=== PATIENT | male | born 1975 | race Hispanic/Latino ===

== ENCOUNTER 2023-01-02 00:19 | Emergency (ER) | payer BC ==
[2023-01-02 00:57] LABS: #Eosinphils 0.2 thou/uL (0.0-0.7); #Monocytes 0.5 thou/uL (0.11-0.59); #Neutrophils 5.7 thou/uL (1.40-6.50); %Basophils 0.1 % (0.0-1.0); %Eosinophils 3.2 % (0.0-10.0); %Lymphocytes 13.9 % (21.0-51.0); %Monocytes 6.5 % (0.0-10.0); Mean Corpuscular HGB CONC 32.6 g/dL (32.0-36.0); Mean Corpuscular Hemoglobin 32.4 pg (27.0-31.0); Mean Corpuscular Volume 99.1 fl (78.0-98.0); Mean Platelet Volume 10.6 fL (7.4-10.4); Platelet Count 141 10x3/uL (130-400); RBC Distribution Width 15.9 % (11.5-14.5); White Blood Cell (WBC) Count 7.5 10x3/uL (4.8-10.8)
[2023-01-02 01:24] LABS: ALT (SGPT) 11 U/L (8-55); AST (SGOT) 20 U/L (5-34); Alkaline Phosphatase 140 U/L (40-110); Anion Gap 25 mmol/L (10-20); BUN (Urea Nitrogen) 70 mg/dL (8.9-20.6); Calc. Creatinine Clearance 0 mL/min (70-130); Calcium 8.7 mg/dL (7.8-10.44); Carbon Dioxide 19 mmol/L (22-29); Chloride 102 mmol/L (98-107); Estimated GFR 6; Globulin 3.2 g/dL (2.4-3.5); Glucose 99 mg/dL (70-105); Potassium 5.2 mmol/L (3.5-5.1); Protein, Total 7.2 g/dL (6.0-8.3); Sodium 141 mmol/L (136-145)
== END 2023-01-02 02:51 | disposition home or self-care (01) ==
LOC: EDBD 00:19 → ERS 00:19
DX: N18.6 End stage renal disease (principal); Z99.2 Dependence on renal dialysis
CPT/HCPCS: 71045; 80053; 85025; 93005

== ENCOUNTER 2023-02-08 23:19 | Observation (INO) | payer BC ==
[2023-02-08 23:39] LABS: #Eosinphils 0.2 thou/uL (0.0-0.7); #Monocytes 0.6 thou/uL (0.11-0.59); #Neutrophils 5.9 thou/uL (1.40-6.50); %Basophils 0.1 % (0.0-1.0); %Eosinophils 2.4 % (0.0-10.0); %Lymphocytes 15.8 % (21.0-51.0); %Monocytes 7.1 % (0.0-10.0); %Neutrophils 74.2 % (42.0-75.0); Hematocrit 35.9 % (42.0-52.0); Hemoglobin 11.7 g/dL (14.0-18.0); Mean Corpuscular HGB CONC 32.6 g/dL (32.0-36.0); Mean Corpuscular Hemoglobin 32.5 pg (27.0-31.0); Mean Corpuscular Volume 99.7 fl (78.0-98.0); Mean Platelet Volume 11.1 fL (7.4-10.4); Platelet Count 143 10x3/uL (130-400); RBC Distribution Width 15.2 % (11.5-14.5); White Blood Cell (WBC) Count 7.9 10x3/uL (4.8-10.8)
[2023-02-08 23:56] LABS: ALT (SGPT) 7 U/L (8-55); AST (SGOT) 13 U/L (5-34); Albumin 3.9 g/dL (3.5-5.0); Alkaline Phosphatase 153 U/L (40-110); Anion Gap 29 mmol/L (10-20); BUN (Urea Nitrogen) 92 mg/dL (8.9-20.6); Bilirubin, Total 1.3 mg/dL (0.2-1.2); Calc. Creatinine Clearance 0 mL/min (70-130); Calcium 8.6 mg/dL (7.8-10.44); Carbon Dioxide 14 mmol/L (22-29); Chloride 103 mmol/L (98-107); Estimated GFR 3; Globulin 3.5 g/dL (2.4-3.5); Glucose 93 mg/dL (70-105); Potassium 5.2 mmol/L (3.5-5.1); Protein, Total 7.4 g/dL (6.0-8.3); Sodium 141 mmol/L (136-145)
[2023-02-09] LABS: Troponin I 0.073 ng/mL (< 0.028)
[2023-02-09] MEDS ORDERED: Nitroglycerin 2% Ointment 1 INCH/1 GM Packet ONE (00:10)
[2023-02-09] MEDS ORDERED: Acetaminophen 650 MG Suppository PR PRN (02:05)
[2023-02-09] MEDS ORDERED: Acetaminophen 325 MG TAB PO PRN (02:05)
[2023-02-09] MEDS ORDERED: Ondansetron PF 4 MG/2 ML Vial IVP PRN (02:05)
[2023-02-09] MEDS ORDERED: Ondansetron ODT 4 MG TAB PO PRN (02:05)
[2023-02-09 02:40] LABS: Hematocrit 35.9 % (42.0-52.0); Hemoglobin 11.5 g/dL (14.0-18.0); Mean Corpuscular Hemoglobin 32.8 pg (27.0-31.0); Mean Corpuscular Volume 102.3 fl (78.0-98.0); Mean Platelet Volume 11.3 fL (7.4-10.4); Platelet Count 136 10x3/uL (130-400); RBC Distribution Width 15.4 % (11.5-14.5); Red Blood Cell (RBC) Count 3.51 mill/uL (4.70-6.10); White Blood Cell (WBC) Count 10.1 10x3/uL (4.8-10.8)
[2023-02-09 02:44] LABS: Delete Auto Diff?? YES; Manual Diff?? YES
[2023-02-09 03:28] LABS: Anion Gap 32 mmol/L (10-20); BUN (Urea Nitrogen) 91 mg/dL (8.9-20.6); Calc. Creatinine Clearance 6 mL/min (70-130); Calcium 7.9 mg/dL (7.8-10.44); Carbon Dioxide 10 mmol/L (22-29); Chloride 104 mmol/L (98-107); Estimated GFR 3; Glucose 75 mg/dL (70-105); Sodium 140 mmol/L (136-145)
[2023-02-09 03:29] LABS: HBSAg Index 0.25 S/CO (0-0.99); Hep B Core Total Ab Non-Reactive (NonReactive); Hep B Core Total Index 0.04 S/CO (0-0.79); Hep B Surf Ag Non-Reactive S/CO (NonReactive); Hep C IgG Ab Non-Reactive S/CO (NonReactive); Hep C Index 0.07 S/CO (0-0.79)
[2023-02-09 03:35] LABS: Burr Cells SLIGHT = 2-5 cells HPF (0-1); CellaVision Operator ID LAB.CLH1; Elliptocytes SLIGHT = 2-5 cells HPF (0-1); Eosinophils 3 % (0-10); Lymphocytes 15 % (21-51); Macrocytosis SLIGHT = 6-15 cells HPF (0-5); Monocytes 7 % (0-10); Neutrophil 76 % (42-75); Platelet Adequacy Comment Platelets Normal; Polychromasia SLIGHT = 2-3 cells HPF (0-2); Total Cell Count 102
[2023-02-09 03:40] LABS: Potassium 6.2 mmol/L (3.5-5.1)
[2023-02-09 03:42] LABS: HBSAB Concentration 15.04 mIU/mL; Hep B Surf AB Reactive (NonReactive)
[2023-02-09] MEDS ORDERED: fentaNYL 50 mcg/mL 1 mL Vial ONE (06:03)
[2023-02-09] MEDS: fentaNYL 50 mcg/mL 1 mL Vial SLOW IVP PRN ×2 (06:14→14:02)
[2023-02-09 08:08] VITALS: BMI 31.0
[2023-02-09] MEDS ORDERED: Amlodipine 5 MG TAB PO SCH (14:21)
[2023-02-09] MEDS: Sevelamer Carbonate 800 MG TAB PO SCH (18:06)
[2023-02-10 05:13] LABS: Anion Gap 24 mmol/L (10-20); BUN (Urea Nitrogen) 59 mg/dL (8.9-20.6); Calc. Creatinine Clearance 11 mL/min (70-130); Carbon Dioxide 20 mmol/L (22-29); Chloride 99 mmol/L (98-107); Estimated GFR 5; Glucose 73 mg/dL (70-105); Potassium 4.4 mmol/L (3.5-5.1); Sodium 139 mmol/L (136-145)
[2023-02-10] MEDS ORDERED: traMADol HCl 50 MG TAB PO SCH (05:30)
[2023-02-10 07:55] VITALS: TEMP 97.7
[2023-02-10] MEDS ORDERED: Heparin 10,000 UNITS/ 10 ML VIAL ONE (08:43)
[2023-02-10] MEDS: Sevelamer Carbonate 800 MG TAB PO SCH ×2 (08:50→14:01)
[2023-02-10] MEDS ORDERED: Amlodipine 5 MG TAB PO SCH (09:00)
[2023-02-10 14:43] VITALS: BP 148/90
== END 2023-02-10 14:30 | disposition home or self-care (01) ==
LOC: ERS 23:19 → ERHOLD 02-09 00:48 → 2NO 02-09 07:37
PROVIDERS: ADMIT Student in an Organized Health Care Education/Training Program; ATTEND Internal Medicine
DX: R06.02 Shortness of breath (principal); N18.6 End stage renal disease; I12.0 Hypertensive chronic kidney disease with stage 5 chronic kidney disease or end stage renal disease; D63.1 Anemia in chronic kidney disease; R60.0 Localized edema; E87.70 Fluid overload, unspecified; F19.90 Other psychoactive substance use, unspecified, uncomplicated; F12.90 Cannabis use, unspecified, uncomplicated; F14.90 Cocaine use, unspecified, uncomplicated; E87.5 Hyperkalemia; E87.20 Acidosis, unspecified; Z99.2 Dependence on renal dialysis
CPT/HCPCS: 36415; 71045; 80048; 80053; 84484; 85025; 86704; 90935; 93005; 94760; 96374; 96376; G0257; G0378; J1644; J3010

== ENCOUNTER 2023-07-27 16:19 | Inpatient (IN) | payer BC ==
[~2023-07-27 16:19] MED LIST: Iopamidol-370 76% 500 ML MDV (1 ML CHARGE) ONE
[2023-07-27 17:08] LABS: #Eosinphils 0.2 thou/uL (0.0-0.7); #Monocytes 0.7 thou/uL (0.11-0.59); #Neutrophils 7.8 thou/uL (1.40-6.50); %Basophils 0.2 % (0.0-1.0); %Eosinophils 1.7 % (0.0-10.0); %Lymphocytes 8.1 % (21.0-51.0); %Monocytes 7.6 % (0.0-10.0); %Neutrophils 82.1 % (42.0-75.0); Hematocrit 33.6 % (42.0-52.0); Hemoglobin 10.6 g/dL (14.0-18.0); Mean Corpuscular HGB CONC 31.5 g/dL (32.0-36.0); Mean Corpuscular Hemoglobin 30.1 pg (27.0-31.0); Mean Corpuscular Volume 95.5 fl (78.0-98.0); Mean Platelet Volume 10.3 fL (7.4-10.4); Platelet Count 193 10x3/uL (130-400); RBC Distribution Width 16.3 % (11.5-14.5); Red Blood Cell (RBC) Count 3.52 mill/uL (4.70-6.10); White Blood Cell (WBC) Count 9.5 10x3/uL (4.8-10.8)
[2023-07-27] MEDS ORDERED: Cefepime 2 GM VIAL ONE (17:09)
[2023-07-27] MEDS ORDERED: Sodium Chloride 0.9% 100 ML ONE (17:09)
[2023-07-27 17:34] LABS: ALT (SGPT) 10 U/L (8-55); AST (SGOT) 16 U/L (5-34); Albumin 3.6 g/dL (3.5-5.0); Alkaline Phosphatase 141 U/L (40-110); Anion Gap 21 mmol/L (10-20); BUN (Urea Nitrogen) 44 mg/dL (8.9-20.6); Bilirubin, Total 1.6 mg/dL (0.2-1.2); Calc. Creatinine Clearance 0 mL/min (70-130); Calcium 8.9 mg/dL (7.8-10.44); Carbon Dioxide 26 mmol/L (22-29); Chloride 101 mmol/L (98-107); Estimated GFR 8; Globulin 4.2 g/dL (2.4-3.5); Glucose 116 mg/dL (70-105); Protein, Total 7.8 g/dL (6.0-8.3); Sodium 143 mmol/L (136-145)
[2023-07-27] MEDS ORDERED: Vancomycin 1 GM/200 ML (FROZEN) BAG ONE (17:53)
[2023-07-27 21:39] LABS: Acetaminophen Less than 10 mcg/mL (10.0-30.0); Alcohol Less than 10.0 mg/dL (Less than 10); Salicylate Less than 8.0 mg/dL (15.0-30.0)
[2023-07-27 21:49] LABS: Bilirubin Negative (Negative); Blood, Urine Negative (Negative); CAUTI Indications for Culture Fever or rigors; Clarity Turbid (Clear); Glucose, Urine (Dipstick) 200 mg/dL (Negative); Ketone, Urine Negative (Negative); Leukocyte 25 Leu/uL (Negative); Nitrite Negative (Negative); Protein, Urine (Dipstick) 300 mg/dL (Neg-Trace); RBC/HPF None Seen HPF (0-3); Urobilinogen Normal mg/dL (Less than 2); WBC/HPF 0-3 HPF (0-3); pH, Urine 8.5 (5.0-9.0)
[2023-07-27 21:53] LABS: Amphetamine Not Detected (NotDetected); Barbiturates Screen Not Detected (NotDetected); Benzodiazepine Screen Not Detected (NotDetected); Cocaine Metabolite Screen Not Detected (NotDetected); Methadone Not Detected (NotDetected); Methamphetamine Not Detected (NotDetected); Opiate Screen Detected (NotDetected); Oxycodone Screen Not Detected (NotDetected); Phencyclidine (PCP) Not Detected (NotDetected); THC/Cannabinoid Screen Detected (NotDetected); Tricyclic Screen Not Detected (NotDetected)
[2023-07-27 22:00] LABS: Bacteria/HPF Rare-Few HPF (None Seen)
[2023-07-27 22:03] LABS: Urine Culture Reflex No No
[2023-07-27] MEDS ORDERED: Acetaminophen 650 MG Suppository PR PRN (23:08)
[2023-07-27] MEDS ORDERED: Ondansetron ODT 4 MG TAB PO PRN (23:08)
[2023-07-27] MEDS ORDERED: Ondansetron PF 4 MG/2 ML Vial IVP PRN (23:08)
[2023-07-27 23:36] VITALS: BMI 26.2
[2023-07-27] MEDS ORDERED: Vancomycin Diaylsis Sliding Scale (Wt 71-99) FS SCH (23:45)
[2023-07-28] MEDS: Acetaminophen 325 MG TAB PO PRN (02:30)
[2023-07-28 04:31] LABS: #Eosinphils 0.2 thou/uL (0.0-0.7); #Monocytes 0.7 thou/uL (0.11-0.59); #Neutrophils 7.5 thou/uL (1.40-6.50); %Basophils 0.2 % (0.0-1.0); %Eosinophils 1.7 % (0.0-10.0); %Lymphocytes 9.5 % (21.0-51.0); %Monocytes 7.6 % (0.0-10.0); %Neutrophils 80.7 % (42.0-75.0); Hematocrit 32.9 % (42.0-52.0); Hemoglobin 10.2 g/dL (14.0-18.0); Mean Corpuscular Hemoglobin 30.1 pg (27.0-31.0); Mean Corpuscular Volume 97.1 fl (78.0-98.0); Mean Platelet Volume 10.7 fL (7.4-10.4); Platelet Count 189 10x3/uL (130-400); RBC Distribution Width 16.3 % (11.5-14.5); Red Blood Cell (RBC) Count 3.39 mill/uL (4.70-6.10); White Blood Cell (WBC) Count 9.4 10x3/uL (4.8-10.8)
[2023-07-28 04:58] LABS: Anion Gap 18 mmol/L (10-20); BUN (Urea Nitrogen) 50 mg/dL (8.9-20.6); Calc. Creatinine Clearance 14 mL/min (70-130); Calcium 8.6 mg/dL (7.8-10.44); Carbon Dioxide 26 mmol/L (22-29); Chloride 102 mmol/L (98-107); Estimated GFR 8; Glucose 94 mg/dL (70-105); Potassium 5.5 mmol/L (3.5-5.1); Sodium 140 mmol/L (136-145)
[2023-07-28 07:46] LABS: Vancomycin, Random 31.2 ug/mL (See Comment)
[2023-07-28] MEDS: Famotidine 20 MG TAB PO SCH (08:56)
[2023-07-28] MEDS: Amlodipine 5 MG TAB PO SCH (08:56)
[2023-07-28] MEDS: Carvedilol 3.125 MG TAB PO SCH (08:57)
[2023-07-28] MEDS: Famotidine/PF 20 mg/2ml Vial SLOW IVP SCH (08:57)
[2023-07-28] MEDS: Sevelamer Carbonate 800 MG TAB PO SCH (08:57)
[2023-07-28] MEDS: Apixaban 5 MG TAB PO SCH (08:57)
[2023-07-28] MEDS ORDERED: Vancomycin 1.5 GM in Sodium Chloride 0.9% 250 ML 300 ML IVPB SCH (09:00)
[2023-07-28] MEDS ORDERED: Heparin 10,000 UNITS/ 10 ML VIAL ONE (12:56)
[2023-07-28] MEDS: Epoetin (ESRD) 10,000 UNITS/ML VIAL IVP SCH (14:16)
[2023-07-29 08:38] VITALS: BP 124/77; TEMP 96.5
== END 2023-07-29 12:00 | disposition home or self-care (01) | DRG 640 ==
LOC: ERS 16:19 → 2NO 21:33
PROVIDERS: ADMIT Student in an Organized Health Care Education/Training Program; ATTEND Internal Medicine
PROC: 5A1D70Z Performance of Urinary Filtration, Intermittent, Less than 6 Hours Per Day (ICD-10-PCS; principal; 2023-07-28)
DX: E87.5 Hyperkalemia (principal); I50.23 Acute on chronic systolic (congestive) heart failure; N18.6 End stage renal disease; J96.01 Acute respiratory failure with hypoxia; I13.2 Hypertensive heart and chronic kidney disease with heart failure and with stage 5 chronic kidney disease, or end stage renal disease; L03.116 Cellulitis of left lower limb; I42.9 Cardiomyopathy, unspecified; J91.8 Pleural effusion in other conditions classified elsewhere; Z99.2 Dependence on renal dialysis; D63.1 Anemia in chronic kidney disease; Z98.890 Other specified postprocedural states; Z79.899 Other long term (current) drug therapy; Z86.718 Personal history of other venous thrombosis and embolism; F19.10 Other psychoactive substance abuse, uncomplicated; G89.29 Other chronic pain; M79.605 Pain in left leg; Z75.3 Unavailability and inaccessibility of health-care facilities
CPT/HCPCS: 36415; 71045; 71275; 80048; 80053; 80202; 80306; 80307; 81001; 83605; 83880; 84484; 85025; 85379; 85610; 85730; 86140; 87040; 90935; 93005; 96365; 96367; 96374; 96375; 96376; G0257; J0692; J1644; J1885; J2270; J2405; J3370; J3370-JW; J3490; Q9967

== ENCOUNTER 2023-07-29 19:13 | Emergency (ER) | payer BC ==
[2023-07-29] MEDS ORDERED: Morphine 4 MG/ML VIAL ONE (20:27)
[2023-07-29] MEDS ORDERED: Ketorolac Tromethamine 30 MG (1 mL) VIAL ONE (20:27)
[2023-07-29 20:45] LABS: #Eosinphils 0.2 thou/uL (0.0-0.7); #Monocytes 1.1 thou/uL (0.11-0.59); #Neutrophils 10.2 thou/uL (1.40-6.50); %Basophils 0.2 % (0.0-1.0); %Eosinophils 1.9 % (0.0-10.0); %Monocytes 8.5 % (0.0-10.0); %Neutrophils 82.1 % (42.0-75.0); Hematocrit 35.2 % (42.0-52.0); Mean Corpuscular HGB CONC 31.3 g/dL (32.0-36.0); Mean Corpuscular Volume 95.9 fl (78.0-98.0); Mean Platelet Volume 10.8 fL (7.4-10.4); Platelet Count 208 10x3/uL (130-400); RBC Distribution Width 16.6 % (11.5-14.5); Red Blood Cell (RBC) Count 3.67 mill/uL (4.70-6.10); White Blood Cell (WBC) Count 12.4 10x3/uL (4.8-10.8)
[2023-07-29 21:09] LABS: ALT (SGPT) 7 U/L (8-55); AST (SGOT) 12 U/L (5-34); Albumin 3.9 g/dL (3.5-5.0); Alkaline Phosphatase 130 U/L (40-110); Anion Gap 23 mmol/L (10-20); BUN (Urea Nitrogen) 49 mg/dL (8.9-20.6); Bilirubin, Total 1.4 mg/dL (0.2-1.2); Calc. Creatinine Clearance 0 mL/min (70-130); Calcium 8.9 mg/dL (7.8-10.44); Carbon Dioxide 21 mmol/L (22-29); Chloride 101 mmol/L (98-107); Estimated GFR 8; Glucose 95 mg/dL (70-105); Protein, Total 7.9 g/dL (6.0-8.3); Sodium 139 mmol/L (136-145)
[2023-07-29] MEDS ORDERED: LOKELMA 10 GM PACKET PO SCH (21:30)
[2023-07-30] MEDS ORDERED: Heparin 10,000 UNITS/ 10 ML VIAL ONE (11:29)
== END 2023-07-30 05:45 | disposition home or self-care (01) ==
LOC: ERS 19:13
DX: G89.29 Other chronic pain (principal); M79.605 Pain in left leg; N18.6 End stage renal disease; Z75.3 Unavailability and inaccessibility of health-care facilities; Z99.2 Dependence on renal dialysis
CPT/HCPCS: 80053; 83605; 85025; J1885; J2270

== ENCOUNTER 2023-07-31 19:46 | Emergency (ER) | payer BC ==
[2023-07-31 21:36] LABS: #Eosinphils 0.1 thou/uL (0.0-0.7); #Monocytes 0.7 thou/uL (0.11-0.59); #Neutrophils 4.5 thou/uL (1.40-6.50); %Basophils 0.2 % (0.0-1.0); %Lymphocytes 15.6 % (21.0-51.0); %Monocytes 11.4 % (0.0-10.0); %Neutrophils 70.6 % (42.0-75.0); Hematocrit 33.4 % (42.0-52.0); Hemoglobin 10.6 g/dL (14.0-18.0); Mean Corpuscular HGB CONC 31.7 g/dL (32.0-36.0); Mean Corpuscular Hemoglobin 30.7 pg (27.0-31.0); Mean Corpuscular Volume 96.8 fl (78.0-98.0); Mean Platelet Volume 10.3 fL (7.4-10.4); Platelet Count 184 10x3/uL (130-400); RBC Distribution Width 17.1 % (11.5-14.5); Red Blood Cell (RBC) Count 3.45 mill/uL (4.70-6.10); White Blood Cell (WBC) Count 6.4 10x3/uL (4.8-10.8)
[2023-07-31 21:49] LABS: INR-International Normal Ratio 1.5; PTT 44.9 sec (22.9-36.1); Prothrombin Time 18.5 sec (12.0-14.7)
[2023-07-31 21:59] LABS: ALT (SGPT) Less than 7 U/L (8-55); AST (SGOT) 12 U/L (5-34); Albumin 3.7 g/dL (3.5-5.0); Alkaline Phosphatase 149 U/L (40-110); Anion Gap 15 mmol/L (10-20); BUN (Urea Nitrogen) 27 mg/dL (8.9-20.6); Bilirubin, Total 1.4 mg/dL (0.2-1.2); Calc. Creatinine Clearance 0 mL/min (70-130); Calcium 8.9 mg/dL (7.8-10.44); Carbon Dioxide 22 mmol/L (22-29); Chloride 105 mmol/L (98-107); Estimated GFR 16; Globulin 3.7 g/dL (2.4-3.5); Glucose 153 mg/dL (70-105); Potassium 4.4 mmol/L (3.5-5.1); Protein, Total 7.4 g/dL (6.0-8.3); Sodium 138 mmol/L (136-145)
[2023-07-31] MEDS ORDERED: HYDROcodone/Acetaminophen 10/325 mg Tablet ONE (23:48)
== END 2023-08-01 00:16 | disposition home or self-care (01) ==
LOC: ERS 19:46
DX: M79.605 Pain in left leg (principal); Z99.2 Dependence on renal dialysis
CPT/HCPCS: 36415; 36416; 80053; 83605; 85025; 85610; 85730

== ENCOUNTER 2023-08-05 19:51 | Inpatient (IN) | payer BC ==
[2023-08-05] MEDS ORDERED: Morphine 4 MG/ML VIAL ONE (20:25)
[2023-08-05] MEDS ORDERED: Insulin Regular 300 UNITS/3 ML VIAL ONE (20:33)
[2023-08-05] MEDS ORDERED: Dextrose 10% in Water 250 ML ONE (20:33)
[2023-08-05] MEDS ORDERED: CALCIUM GLUC 1 GM (50 ML) BAG ONE (20:33)
[2023-08-05] MEDS ORDERED: Albuterol 2.5 MG (0.5 mL) NEB ONE (20:36)
[2023-08-05 20:51] LABS: #Monocytes 0.8 thou/uL (0.11-0.59); #Neutrophils 8.9 thou/uL (1.40-6.50); %Basophils 0.2 % (0.0-1.0); %Eosinophils 0.3 % (0.0-10.0); %Lymphocytes 9.6 % (21.0-51.0); %Monocytes 7.5 % (0.0-10.0); Hematocrit 37.7 % (42.0-52.0); Mean Corpuscular HGB CONC 31.8 g/dL (32.0-36.0); Mean Corpuscular Hemoglobin 30.1 pg (27.0-31.0); Mean Corpuscular Volume 94.5 fl (78.0-98.0); Mean Platelet Volume 11.1 fL (7.4-10.4); Platelet Count 179 10x3/uL (130-400); RBC Distribution Width 17.2 % (11.5-14.5); Red Blood Cell (RBC) Count 3.99 mill/uL (4.70-6.10); White Blood Cell (WBC) Count 10.8 10x3/uL (4.8-10.8)
[2023-08-05 21:15] LABS: ALT (SGPT) 19 U/L (8-55); AST (SGOT) 40 U/L (5-34); Albumin 4.4 g/dL (3.5-5.0); Alkaline Phosphatase 164 U/L (40-110); Anion Gap 33 mmol/L (10-20); BUN (Urea Nitrogen) 99 mg/dL (8.9-20.6); Bilirubin, Total 2.9 mg/dL (0.2-1.2); Calc. Creatinine Clearance 0 mL/min (70-130); Calcium 9.3 mg/dL (7.8-10.44); Carbon Dioxide 14 mmol/L (22-29); Chloride 97 mmol/L (98-107); Estimated GFR 6; Globulin 4.3 g/dL (2.4-3.5); Glucose 58 mg/dL (70-105); Lipase 8 U/L (8-78); Protein, Total 8.7 g/dL (6.0-8.3); Sodium 136 mmol/L (136-145)
[2023-08-05 21:18] LABS: Troponin I 0.066 ng/mL (< 0.028)
[2023-08-05 21:20] LABS: Critical Call Chemistry NUR.LK7@2119; Potassium 7.9 mmol/L (3.5-5.1)
[2023-08-05] MEDS ORDERED: Dextrose 10% in Water 500 ML ONE (21:27)
[2023-08-05 21:29] LABS: Analyzer IN Cardio ER; Base Excess -11.4 mEq/L (-2.0 to +3.0); Chloride (VBG) 96 mmol/L (98-106); Hematocrit-VBG 36 % (42.0-52.0); Hemoglobin (Hb) 12.4 g/dL (13.1-17.2); Sodium 134 mmol/L (133-146); pH (venous) 7.283 (7.32-7.43)
[2023-08-05] MEDS ORDERED: Furosemide 40 MG (4 mL) VIAL ONE (21:36)
[2023-08-05 21:59] LABS: Acetaminophen Less than 10 mcg/mL (10.0-30.0); Alcohol Less than 10.0 mg/dL (Less than 10); Salicylate Less than 8.0 mg/dL (15.0-30.0)
[2023-08-05] MEDS ORDERED: KETAMINE 100 MG/ML (5ML VIAL) ONE (22:39)
[2023-08-05] MEDS ORDERED: Rocuronium Bromide 10 MG/ML (10ML VIAL) ONE (22:39)
[2023-08-05] MEDS ORDERED: fentaNYL 50 mcg/mL 1 mL Vial ONE (22:50)
[2023-08-05] MEDS ORDERED: Fentanyl CADD 100 ML IV SCH ×2 (23:00→23:15)
[2023-08-05] MEDS ORDERED: Acetaminophen 650 MG Suppository PR PRN (23:03)
[2023-08-05] MEDS ORDERED: Acetaminophen 650 MG/20.3 ML UDCUP PO PRN (23:07)
[2023-08-05] MEDS ORDERED: Lorazepam 2 MG/ML VIAL SLOW IVP PRN (23:15)
[2023-08-05] MEDS ORDERED: DISCONTINUE PREVIOUS NARCOTIC PAIN MEDICATIONS AND BENZODIAZEPINES FS SCH (23:15)
[2023-08-05] MEDS ORDERED: Fentanyl BOLUS 250 ML IVPB PRN (23:15)
[2023-08-05] MEDS ORDERED: Propofol BOLUS 1,000 MG/100 ML VIAL IV PRN (23:15)
[2023-08-05] MEDS ORDERED: Ventilator Sedation Protocol 1 EACH FS SCH (23:15)
[2023-08-05] MEDS ORDERED: Morphine 2 MG/ML VIAL SLOW IVP PRN (23:15)
[2023-08-05] MEDS ORDERED: Propofol 1,000 MG/100 ML VIAL IV PRN (23:15)
[2023-08-05 23:21] LABS: Actual Bicarbonate (HCO3a) 15.3 mEq/L (22-28); Analyzer IN Cardio ER; Base Excess (BEa) -9.9 mEq/L (-2.0 to +3.0); CO2 Tension 31.5 mmHg (35.0-45.0); Calcium, Ionized (arterial) 1.03 mmol/L (1.12-1.30); Carboxyhemoglobin (COHb) 0.5 gm% (0.0-3.0); Hematocrit-ABG 34 % (42.0-52.0); Hemoglobin (Hb) 11.7 g/dL (14.0-18.0); O2 Tension (PaO2), arterial 266.6 mmHg (80.0-100.0); pH, Arterial 7.305 (7.35-7.45)
[2023-08-06] MEDS ORDERED: Glucagon 1 MG/ML KIT IM PRN (00:18)
[2023-08-06] MEDS ORDERED: Dextrose 5% in Water 1,000 ML IV PRN (00:18)
[2023-08-06] MEDS: Dextrose 50% Abboject 50 ML SYRINGE SLOW IVP PRN (00:20)
[2023-08-06 00:54] LABS: Troponin I 0.053 ng/mL (< 0.028)
[2023-08-06] MEDS: Dextrose 50% Abboject 50 ML SYRINGE ONE (01:25)
[2023-08-06 04:20] LABS: #Eosinphils 0.1 thou/uL (0.0-0.7); #Monocytes 0.6 thou/uL (0.11-0.59); #Neutrophils 6.6 thou/uL (1.40-6.50); %Basophils 0.1 % (0.0-1.0); %Eosinophils 0.6 % (0.0-10.0); %Lymphocytes 9.9 % (21.0-51.0); %Monocytes 7.2 % (0.0-10.0); %Neutrophils 81.8 % (42.0-75.0); Hematocrit 34.5 % (42.0-52.0); Hemoglobin 11.1 g/dL (14.0-18.0); Mean Corpuscular HGB CONC 32.2 g/dL (32.0-36.0); Mean Corpuscular Hemoglobin 29.9 pg (27.0-31.0); Mean Platelet Volume 10.8 fL (7.4-10.4); Platelet Count 143 10x3/uL (130-400); RBC Distribution Width 17.2 % (11.5-14.5); Red Blood Cell (RBC) Count 3.71 mill/uL (4.70-6.10); White Blood Cell (WBC) Count 8.1 10x3/uL (4.8-10.8)
[2023-08-06 04:49] LABS: Troponin I 0.079 ng/mL (< 0.028)
[2023-08-06 05:17] LABS: Anion Gap 19 mmol/L (10-20); BUN (Urea Nitrogen) 31 mg/dL (8.9-20.6); Calc. Creatinine Clearance 28 mL/min (70-130); Calcium 9.4 mg/dL (7.8-10.44); Carbon Dioxide 24 mmol/L (22-29); Chloride 98 mmol/L (98-107); Estimated GFR 18; Glucose 70 mg/dL (70-105); Potassium 3.4 mmol/L (3.5-5.1); Sodium 138 mmol/L (136-145)
[2023-08-06 06:10] LABS: Amphetamine Not Detected (NotDetected); Barbiturates Screen Not Detected (NotDetected); Benzodiazepine Screen Not Detected (NotDetected); Cocaine Metabolite Screen Detected (NotDetected); Methadone Not Detected (NotDetected); Methamphetamine Detected (NotDetected); Opiate Screen Detected (NotDetected); Oxycodone Screen Not Detected (NotDetected); Phencyclidine (PCP) Not Detected (NotDetected); THC/Cannabinoid Screen Detected (NotDetected); Tricyclic Screen Not Detected (NotDetected)
[2023-08-06 08:50] VITALS: BMI 26.9
[2023-08-06] MEDS ORDERED: Famotidine/PF 20 mg/2ml Vial SLOW IVP SCH (09:00)
[2023-08-06] MEDS: Sevelamer Carbonate 800 MG TAB PO SCH (09:27)
[2023-08-06] MEDS: Carvedilol 3.125 MG TAB PO SCH (09:28)
[2023-08-06] MEDS: FLU VACC QS2023-24(6MOS UP)/PF 60 MCG/0.5 ML SYRINGE IM ONE (09:28)
[2023-08-06] MEDS: Apixaban 5 MG TAB PO SCH (09:28)
[2023-08-06] MEDS: Amlodipine 5 MG TAB PO SCH (09:28)
[2023-08-06] MEDS: Pantoprazole 40 MG VIAL IVP SCH (09:38)
[2023-08-06 10:49] LABS: Syphilis Antibody Nonreactive (Nonreactive); Syphilis Antibody Index 0.06 S/CO (<1.00 Non-Reactive)
[2023-08-07 07:10] LABS: #Eosinphils 0.1 thou/uL (0.0-0.7); #Monocytes 0.7 thou/uL (0.11-0.59); #Neutrophils 4.7 thou/uL (1.40-6.50); %Basophils 0.2 % (0.0-1.0); %Eosinophils 2.1 % (0.0-10.0); %Lymphocytes 15.8 % (21.0-51.0); %Monocytes 9.8 % (0.0-10.0); %Neutrophils 71.6 % (42.0-75.0); Hematocrit 32.5 % (42.0-52.0); Hemoglobin 10.2 g/dL (14.0-18.0); Mean Corpuscular HGB CONC 31.4 g/dL (32.0-36.0); Mean Corpuscular Hemoglobin 30.2 pg (27.0-31.0); Mean Corpuscular Volume 96.2 fl (78.0-98.0); Platelet Count 139 10x3/uL (130-400); RBC Distribution Width 17.3 % (11.5-14.5); Red Blood Cell (RBC) Count 3.38 mill/uL (4.70-6.10); White Blood Cell (WBC) Count 6.6 10x3/uL (4.8-10.8)
[2023-08-07 07:46] LABS: Anion Gap 20 mmol/L (10-20); BUN (Urea Nitrogen) 51 mg/dL (8.9-20.6); Calc. Creatinine Clearance 14 mL/min (70-130); Calcium 8.6 mg/dL (7.8-10.44); Carbon Dioxide 25 mmol/L (22-29); Chloride 99 mmol/L (98-107); Estimated GFR 8; Glucose 91 mg/dL (70-105); Potassium 4.6 mmol/L (3.5-5.1); Sodium 139 mmol/L (136-145)
[2023-08-07] MEDS ORDERED: Heparin 10,000 UNITS/ 10 ML VIAL ONE (09:27)
[2023-08-07 10:08] LABS: Potassium (VBG) 7.51 mmol/L (3.70-5.30)
[2023-08-07 10:09] LABS: Potassium - ABG Lab 6.23 mmol/L (3.70-5.30)
[2023-08-07] MEDS: HYDROcodone/Acetaminophen 5/325 mg Tablet PO PRN (10:58)
[2023-08-07 16:10] VITALS: BP 109/69; TEMP 98
== END 2023-08-07 17:25 | disposition home or self-care (01) | DRG 280 ==
LOC: ERS 19:51 → CCU 22:51 → T4-A 08-06 18:06
PROVIDERS: ADMIT Student in an Organized Health Care Education/Training Program; ATTEND Internal Medicine
PROC: 4A133R1 Monitoring of Arterial Saturation, Peripheral, Percutaneous Approach (ICD-10-PCS; principal; 2023-08-05)
PROC: 5A1935Z Respiratory Ventilation, Less than 24 Consecutive Hours (ICD-10-PCS; 2023-08-06)
DX: I13.2 Hypertensive heart and chronic kidney disease with heart failure and with stage 5 chronic kidney disease, or end stage renal disease (principal); I50.23 Acute on chronic systolic (congestive) heart failure; I21.A1 Myocardial infarction type 2; N18.6 End stage renal disease; J96.01 Acute respiratory failure with hypoxia; M87.9 Osteonecrosis, unspecified; I82.402 Acute embolism and thrombosis of unspecified deep veins of left lower extremity; Z99.2 Dependence on renal dialysis; E87.5 Hyperkalemia; Z79.01 Long term (current) use of anticoagulants; Z79.899 Other long term (current) drug therapy; D63.1 Anemia in chronic kidney disease
CPT/HCPCS: 31500; 36415; 36416; 71045; 74176; 76705; 80048; 80053; 80306; 80307; 82805; 83690; 83880; 84484; 85025; 86780; 90935; 93005; 94002; 94003; 94644; 94660; 94760; 96365; 96375; 99292; C9113; G0257; J0613; J1644; J1815; J1940; J2270; J3010; J7611; J7999